=== PATIENT | female | born 1995 | race Caucasian/White ===

== ENCOUNTER 2017-06-19 20:53 | Emergency (ER) | payer MEDICAID ==
[~2017-06-19] VITALS: Ht 162.6 cm; Wt 61.2 kg
[~2017-06-19 20:53] MED LIST: INSU100S45 SUBQ; LANTUS SUBQ
[2017-06-19 20:56] VITALS: BP 109/73
--- NOTE | 2017-06-19 22:00 | NUR ---
PATIENT LEFT WITHOUT BEING SEEN BY DR. MONTGOMERY. NO FURTHER CARE PROVIDED FOR PATIENT.
== END 2017-06-19 22:00 | disposition left against medical advice (07) ==
LOC: MED 20:53
DX: R11.10 Vomiting, unspecified (principal); Z53.21 Procedure and treatment not carried out due to patient leaving prior to being seen by health care provider
CPT/HCPCS: 82948

== ENCOUNTER 2018-04-07 21:45 | Emergency (ER) | payer MEDICAID, OTHER ==
--- NOTE | 2018-04-07 22:00 | NUR ---
PATIENT CALLED TO BE TRIAGE NO RESPONSE. PATIENT LEFT WITHOUT BEING SEEN BY DR. CAVAZOS. NO FURTHER CARE PROVIDED FOR PATIENT.
== END 2018-04-07 22:00 | disposition left against medical advice (07) ==
LOC: MED 21:45
DX: R11.0 Nausea (principal); Z53.21 Procedure and treatment not carried out due to patient leaving prior to being seen by health care provider

== ENCOUNTER 2018-11-21 18:46 | Emergency (ER) | payer MEDICAID ==
[~2018-11-21] VITALS: Ht 162.6 cm; Wt 59.9 kg
[2018-11-21 19:29] VITALS: BP 109/79
--- NOTE | 2018-11-21 19:33 | NUR ---
PT AMBULATORY TO ER LOBBY W/ STEADY GAIT IN STABLE CONDITION.
--- NOTE | 2018-11-21 22:32 | NUR ---
PT AMBULATED TO BED 11.
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
--- NOTE | 2018-11-21 23:06 | NUR ---
DR. PRICE AT BEDSIDE FOR EVALUATION.
[2018-11-21 23:34] VITALS: BP 111/78
--- NOTE | 2018-11-21 23:34 | NUR ---
Patient discharged with v/s stable. Written and verbal after care instructions given and explained. Patient alert, oriented and verbalized understanding of instructions. Ambulatory with steady gait. All questions addressed prior to discharge. ID band removed. Patient advised to follow up with PMD. Rx of cIPROFLOXACIN given. Patient educated on indication of medication including possible reaction and side effects. Opportunity to ask questions provided and answered.
== END 2018-11-21 23:34 | disposition home or self-care (01) ==
LOC: MED 18:46
DX: H10.9 Unspecified conjunctivitis (principal); E10.9 Type 1 diabetes mellitus without complications; Z88.0 Allergy status to penicillin; Z79.4 Long term (current) use of insulin
CPT/HCPCS: 99283